=== PATIENT | female | born 1995 | race Hispanic/Latino ===

== ENCOUNTER 2021-11-27 13:03 | Emergency (ER) | payer SELFPAY ==
[2021-11-27] MEDS ORDERED: HYDROcodone/Acetaminophen 10/325 mg Tablet ONE (15:20)
== END 2021-11-27 15:30 | disposition home or self-care (01) ==
LOC: ERS 13:03
DX: S63.617A Unspecified sprain of left little finger, initial encounter (principal); S63.602A Unspecified sprain of left thumb, initial encounter; W22.8XXA Striking against or struck by other objects, initial encounter; Y93.01 Activity, walking, marching and hiking